=== PATIENT | female | born 1950 | race African-American/Black ===

== ENCOUNTER → 2023-09-25 14:43 | Outpatient (REF) | payer MEDICARE, BC, OTHER, SELFPAY | LOC: PAVMRI 14:43 | PROVIDERS: ATTENDING PHYSICIAN Psychiatry & Neurology Neurology; FAMILY PHYSICIAN Family Medicine | DX: R41.3 Other amnesia (principal) | CPT/HCPCS: 70551 ==

== ENCOUNTER → 2023-11-08 08:32 | Outpatient (REF) | payer MEDICARE, BC, OTHER, SELFPAY | LOC: MRI 3T 08:32 | PROVIDERS: ATTENDING PHYSICIAN Psychiatry & Neurology Neurology; FAMILY PHYSICIAN Family Medicine | DX: M54.12 Radiculopathy, cervical region (principal) | CPT/HCPCS: 72141 ==

== ENCOUNTER → 2023-12-17 14:16 | Outpatient (REF) | payer MEDICARE, BC, OTHER, SELFPAY | LOC: RAD 14:16 | PROVIDERS: ATTENDING PHYSICIAN Family Medicine | DX: E07.9 Disorder of thyroid, unspecified (principal) | CPT/HCPCS: 76536 ==

== ENCOUNTER → 2024-08-22 10:39 | Outpatient (REF) | payer MEDICARE, BC, OTHER, SELFPAY | LOC: RAD 10:39 | PROVIDERS: ATTENDING PHYSICIAN Internal Medicine Critical Care Medicine; FAMILY PHYSICIAN Family Medicine | DX: J84.9 Interstitial pulmonary disease, unspecified (principal) | CPT/HCPCS: 71046 ==

== ENCOUNTER → 2025-01-09 15:31 | Outpatient (REF) | payer MEDICARE, BC, OTHER, SELFPAY | LOC: RAD 15:31 | PROVIDERS: ATTENDING PHYSICIAN Internal Medicine Rheumatology; FAMILY PHYSICIAN Family Medicine | DX: M33.90 Dermatopolymyositis, unspecified, organ involvement unspecified (principal); M75.51 Bursitis of right shoulder | CPT/HCPCS: 73030 ==